=== PATIENT | male | born 1945 | race Caucasian/White ===

== ENCOUNTER 2016-07-12 11:13 | Emergency (ER) | payer MEDICARE ==
[~2016-07-12] VITALS: Ht 177.8 cm; Wt 98.0 kg
[2016-07-12 11:15] VITALS: Ht 177.8 cm; Wt 98.0 kg
[2016-07-12] MEDS ORDERED: RALT400T4 PO (11:49)
[2016-07-12] MEDS ORDERED: EMTR1TAB11 PO (11:49)
--- NOTE | 2016-07-12 11:52 | ERD ---
ER Documentation Chief Complaint Date/Time DATE: 07/12/16 TIME: 11:50 Chief Complaint ACCIDENTAL NEEDLE STICK, RIGHT INDEX FINGER HPI This 70-year-old male presents with a needlestick on his right index finger sustained today with a suture needle through a glove. 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 Tetanus is not up-to-date. He has small amount of blood which she expressed but no current bleeding. Denies any other symptoms. Source patient has a known history of hepatitis B infection but uncertain if active. ROS All systems reviewed and are negative except as per history of present illness. Medications Home Meds Active Scripts Raltegravir Potassium* (Isentress*) 400 Mg Tablet, 400 MG PO BID for 7 Days, # 14 TAB Prov:KINDRA BROWNING MD 07/12/16 Emtricitabine-Tenofovir* (Truvada*) 200-300 Mg Tablet, 1 TAB PO DAILY for 7 Days , TAB Prov:KINDRA BROWNING MD 07/12/16 Physical Exam Vitals Vital Signs Date Time Temp Pulse Resp B/P Pulse Ox O2 Delivery O2 Flow Rate FiO2 07/12/16 11:15 98.1 90 20 140/85 99 Physical Exam Const: [] Alert, [id number]. Head: Atraumatic Eyes: Normal Conjunctiva ENT: Normal External Ears, Nose and Mouth. Neck: Full range of motion..~ No meningismus. Resp: Clear to auscultation bilaterally Cardio: Regular rate and rhythm, no murmurs Abd: Soft, non tender, non distended. Normal bowel sounds Skin: No petechiae or rashes. Sealed puncture wound on the right index finger without active bleeding, erythema, restricted range of motion weakness. Back: No midline or flank tenderness Ext: No cyanosis, or edema Neur: Awake and alert Psych: Normal Mood and Affect Results 24 hrs Current Medications Medications (Trade) Dose Ordered Sig/Lenore Route PRN Reason Start Time Stop Time Status Last Admin Dose Admin Diphtheria/ Tetanus/Acell Pertussis (Adacel) 0.5 ml ONCE ONCE IM* 07/12/16 12:00 07/12/16 12:01 Emtricitabine/ Tenofovir (Truvada) 1 tab ONCE ONCE PO 07/12/16 12:00 07/12/16 12:01 Miscellaneous Medication (Isentress) 400 mg ONCE ONCE PO 07/12/16 12:00 07/12/16 12:01 Procedures/[facility] Needlestick panel was ordered. Patient was given Truvada 1 p.o. and Isentress 400 mg by mouth. Recommendations for labs on source patient were provided to patient. Patient was advised he will need follow up testing in 1 month 3 month and 6 months. Patient is advised to return to the ER for new or worsening symptoms. Patient was given a one-week prescription of Truvada and Isentress. Departure Diagnosis: Primary Impression: Needlestick injury accident Encounter type: initial encounter Qualified Code: W27.3XXA - Needlestick injury accident, initial encounter Condition: Stable Patient Instructions: Standard Precautions: [place] and Other [place] Additional Instructions: Recommend repeat with occupational medicine or employee health hepatitis and HIV test 1 month 3 month and 6 months. Recommend postexposure prophylaxis until source patient labs return. Recommended labs on source patient- HIV antibody Hepatitis C antibody Hepatitis B surface antibody Hepatitis B surface antigen Anti-hepatitis B core antigen KINDRA BROWNING MD Jul 12, 2016 11:52
[2016-07-12] MEDS ORDERED: EMTRICITABINE/TENOFOVIR TAB PO ONE (12:00)
[2016-07-12] MEDS ORDERED: DIPHTH/TET/ACEL PERTUSS (ADULT) 0.5 ML VIAL IM* ONE (12:00)
[2016-07-12] MEDS ORDERED: RALTEGRAVIR 400 MG TAB PO ONE (12:00)
[2016-07-12 12:19] LABS: BASOPHILS % 0.4 % (0.0-2.0); EOSINOPHILS # 0.1 10^3/ul (0.0-0.5); EOSINOPHILS % 0.8 % (0.0-7.0); HEMATOCRIT 45.6 % (42.0-52.0); HEMOGLOBIN 15.3 g/dl (14.0-18.0); LYMPHOCYTES # 1.3 10^3/ul (0.8-2.9); LYMPHOCYTES % 16.5 % (15.0-51.0); MEAN CORPUSCULAR HEMOGLOBIN 29.5 pg (29.0-33.0); MEAN CORPUSCULAR HGB CONC 33.5 g/dl (32.0-37.0); MEAN CORPUSCULAR VOLUME 88.1 fl (82.0-101.0); MEAN PLATELET VOLUME 8.6 fl (7.4-10.4); MONOCYTE # 0.4 10^3/ul (0.3-0.9); MONOCYTES % 5.5 % (0.0-11.0); NEUTROPHIL # 6.2 10^3/ul (1.6-7.5); NEUTROPHILS % 76.8 % (39.0-77.0); PLATELET COUNT 213 10^3/UL (140-440); RED BLOOD COUNT 5.18 10^6/ul (4.70-6.10); RED CELL DISTRIBUTION WIDTH 14.8 % (11.5-14.5)
[2016-07-12 12:22] LABS: CONDITION 1; LH ANALYZER COMMENTS 1
[2016-07-12 12:27] LABS: ALKALINE PHOSPHATASE 74 IU/L (42-121); ASPARTATE AMINO TRANSFERASE 27 IU/L (15-46); BILIRUBIN,INDIRECT 0.3 mg/dl (0-1.1); BILIRUBIN,TOTAL 0.3 mg/dl (0.2-1.3); TOTAL PROTEIN 6.9 g/dl (6.1-8.1)
[2016-07-12 12:28] LABS: ALANINE AMINOTRANSFERASE 39 IU/L (13-69)
== END 2016-07-12 12:20 | disposition home or self-care (01) ==
LOC: FTE 11:13
DX: S61.230A Puncture wound without foreign body of right index finger without damage to nail, initial encounter (principal); W46.1XXA Contact with contaminated hypodermic needle, initial encounter; Y92.239 Unspecified place in hospital as the place of occurrence of the external cause; Z23 Encounter for immunization
CPT/HCPCS: 80076; 85025; 86703; 86706; 86803; 87340; 90471

== ENCOUNTER 2017-04-18 12:48 | Emergency (ER) | payer MEDICARE ==
[~2017-04-18] VITALS: Ht 172.7 cm; Wt 70.0 kg
[2017-04-18 12:48] VITALS: Ht 172.7 cm; Wt 70.0 kg
[~2017-04-18 12:48] MED LIST: EMTR1TAB11 PO; RALT400T4 PO
--- NOTE | 2017-04-18 13:31 | ERD ---
ER Documentation Chief Complaint Chief Complaint HPI 71-year-old male, presents to the emergency department complaining of mildly pruritic rash on the left side of his neck for the last 48 hours. Denies fevers , chills. No sick contacts. Positive history of chickenpox. ROS All systems reviewed and are negative except as per history of present illness. Medications Home Meds Active Scripts Hydrocodone/Acetaminophen ([place] 5-325 Tablet) 1 Each Tablet, 1 TAB PO Q6H Y for PAIN, #20 TAB Prov:EASTON JOHNSON MD 04/18/17 Prednisone* (Prednisone*) 20 Mg Tab, 40 MG PO DAILY for 5 Days, TAB Prov:EASTON JOHNSON MD 04/18/17 Valacyclovir HCl (Valtrex) 1,000 Mg Tablet, 1000 MG PO TID for 7 Days, TAB Prov:EASTON JOHNSON MD 04/18/17 Raltegravir Potassium* (Isentress*) 400 Mg Tablet, 400 MG PO BID for 7 Days, # 14 TAB Prov:KINDRA BROWNING MD 07/12/16 Emtricitabine-Tenofovir* (Truvada*) 200-300 Mg Tablet, 1 TAB PO DAILY for 7 Days , TAB Prov:KINDRA BROWNING MD 07/12/16 Allergies Allergies: Uncoded Allergies: PENICILLIN (Allergy, Intermediate, 07/12/16) Physical Exam Vitals Vital Signs Date Time Temp Pulse Resp B/P Pulse Ox O2 Delivery O2 Flow Rate FiO2 04/18/17 12:48 98.1 87 20 128/87 100 Physical Exam Patient is in no acute distress, vital signs stable. Alert and fully oriented. EYES: PERRLA, EOMI, Sclera and conjunctiva appear normal. EARS: Canals clear, tympanic membranes WNL THROAT: Normal oropharynx. NECK: Supple, No lymphadenopathy. Full ROM without pain or tenderness. HEART: RRR, no rubs, murmurs, clicks or gallops. LUNGS: Clear to auscultation. Skin: Erythematous vesicular rash, with some pustules in dermatomal distribution on the left side of the neck Procedures/MDM 71y/o male patient, presents to the ED c/o pruritic, erythematous rash on the left side of the neck for 2 days. Vital signs stable, Physical exam showed erythematous vesicular rash in dermatomal distribution. Differential diagnosis include but not limited to: Contact dermatitis, insect bite, impetigo, cellulitis, Fernandez-Aredn, pemphigus. Physical examination and clinical presentation consistent most likely with shingles. During the ED course the patient remained stable, no new complaints. Clinical impression discussed with patient who agrees with management. The patient is stable to be treated outpatient and will be discharged home with a Rx for valacyclovir, prednisone, and [place] as needed for severe pain Side effects of prescribed narcotic medications (drowsiness, constipation, habituation) were reviewed. If symptoms persist, worsen or new symptoms develop, then patient is instructed to follow-up with the primary care provider. If the patient is unable to see the primary care provider, then return to the ED immediately. Departure Diagnosis: Primary Impression: Shingles Condition: Stable Additional Instructions: Thank you very much for allowing us to participate in your care. Your health and safety is our top priority at [facility]. Have prescriptions filled and follow precisely the directions on the label. Follow-up with primary care provider during the next 4 days and bring all the information and medications prescribed. If illness has not improved in 2 days, then make an appointment with primary care provider. If the provider is unavailable, return to the Emergency Department immediately. EASTON JOHNSON MD Apr 18, 2017 13:30
--- NOTE | 2017-04-18 13:31 | ERD ---
ER Documentation Chief Complaint Chief Complaint HPI 71-year-old male, presents to the emergency department complaining of mildly pruritic rash on the left side of his neck for the last 48 hours. Denies fevers , chills. No sick contacts. Positive history of chickenpox. ROS All systems reviewed and are negative except as per history of present illness. Medications Home Meds Active Scripts Hydrocodone/Acetaminophen ([place] 5-325 Tablet) 1 Each Tablet, 1 TAB PO Q6H Y for PAIN, #20 TAB Prov:EASTON JOHNSON MD 04/18/17 Prednisone* (Prednisone*) 20 Mg Tab, 40 MG PO DAILY for 5 Days, TAB Prov:EASTON JOHNSON MD 04/18/17 Valacyclovir HCl (Valtrex) 1,000 Mg Tablet, 1000 MG PO TID for 7 Days, TAB Prov:EASTON JOHNSON MD 04/18/17 Raltegravir Potassium* (Isentress*) 400 Mg Tablet, 400 MG PO BID for 7 Days, # 14 TAB Prov:KINDRA BROWNING MD 07/12/16 Emtricitabine-Tenofovir* (Truvada*) 200-300 Mg Tablet, 1 TAB PO DAILY for 7 Days , TAB Prov:KINDRA BROWNING MD 07/12/16 Allergies Allergies: Uncoded Allergies: PENICILLIN (Allergy, Intermediate, 07/12/16) Physical Exam Vitals Vital Signs Date Time Temp Pulse Resp B/P Pulse Ox O2 Delivery O2 Flow Rate FiO2 04/18/17 12:48 98.1 87 20 128/87 100 Physical Exam Patient is in no acute distress, vital signs stable. Alert and fully oriented. EYES: PERRLA, EOMI, Sclera and conjunctiva appear normal. EARS: Canals clear, tympanic membranes WNL THROAT: Normal oropharynx. NECK: Supple, No lymphadenopathy. Full ROM without pain or tenderness. HEART: RRR, no rubs, murmurs, clicks or gallops. LUNGS: Clear to auscultation. Skin: Erythematous vesicular rash, with some pustules in dermatomal distribution on the left side of the neck Procedures/MDM 71y/o male patient, presents to the ED c/o pruritic, erythematous rash on the left side of the neck for 2 days. Vital signs stable, Physical exam showed erythematous vesicular rash in dermatomal distribution. Differential diagnosis include but not limited to: Contact dermatitis, insect bite, impetigo, cellulitis, Fernandez-Arden, pemphigus. Physical examination and clinical presentation consistent most likely with shingles. During the ED course the patient remained stable, no new complaints. Clinical impression discussed with patient who agrees with management. The patient is stable to be treated outpatient and will be discharged home with a Rx for valacyclovir, prednisone, and [place] as needed for severe pain Side effects of prescribed narcotic medications (drowsiness, constipation, habituation) were reviewed. If symptoms persist, worsen or new symptoms develop, then patient is instructed to follow-up with the primary care provider. If the patient is unable to see the primary care provider, then return to the ED immediately. Departure Diagnosis: Primary Impression: Shingles Condition: Stable Additional Instructions: Thank you very much for allowing us to participate in your care. Your health and safety is our top priority at [facility]. Have prescriptions filled and follow precisely the directions on the label. Follow-up with primary care provider during the next 4 days and bring all the information and medications prescribed. If illness has not improved in 2 days, then make an appointment with primary care provider. If the provider is unavailable, return to the Emergency Department immediately. EASTON JOHNSON MD Apr 18, 2017 13:30
[2017-04-18] MEDS ORDERED: PRED20TA PO (13:32)
[2017-04-18] MEDS ORDERED: HYDR-906 PO (13:32)
[2017-04-18] MEDS ORDERED: VALA10004 PO (13:32)
== END 2017-04-18 13:48 | disposition home or self-care (01) ==
LOC: FTE 12:48
DX: B02.9 Zoster without complications (principal)
CPT/HCPCS: 99284